=== PATIENT | female | born 1980 | race African-American/Black ===

== ENCOUNTER → 2016-12-28 | Outpatient (CLI) | payer OTHER ==
[~2016-12-28] MED LIST: CAMRESE 0.15-01 EACH PO; HYDROCHLOROTH12.5 M3 PO; TYLENOL WITH C1 EACH PO
== END | disposition home or self-care (01) ==
LOC: CDC 12:36
DX: Z01.810 Encounter for preprocedural cardiovascular examination (principal); K64.4 Residual hemorrhoidal skin tags; R94.31 Abnormal electrocardiogram [ECG] [EKG]
CPT/HCPCS: 93000

== ENCOUNTER 2017-01-13 09:07 | Day surgery (SDC) | payer OTHER ==
[~2017-01-13] VITALS: Ht 152.4 cm; Wt 42.2 kg
[~2017-01-13 09:07] MED LIST changes: +BENTYL10 MG PO; +COZAAR25 MG PO; +HEMORRHOIDAL OI57 G2 PR; +XANAX0.25 MG PO
[2017-01-13] MEDS ORDERED: MOTRIN600 MG PO (12:07)
[2017-01-13] MEDS ORDERED: COLACE100 MG PO (12:07)
[2017-01-13] MEDS ORDERED: PERCOCET 5/31 TABLET PO (12:07)
[2017-01-13] MEDS ORDERED: ANECREAM30 GM TP (12:07)
[2017-01-13 13:00] VITALS: BP 122/70
[2017-01-13 14:14] VITALS: BP 114/61
== END 2017-01-13 14:30 | disposition home or self-care (01) ==
LOC: SDC 09:07
DX: K64.4 Residual hemorrhoidal skin tags (principal); D25.9 Leiomyoma of uterus, unspecified; F41.9 Anxiety disorder, unspecified; I10 Essential (primary) hypertension; D64.9 Anemia, unspecified; E78.00 Pure hypercholesterolemia, unspecified
CPT/HCPCS: 88304; J0131; J1100; J1170; J1885; J2250; J2405; J3010; Q0175; S0074